=== PATIENT | male | born 1960 | race Caucasian/White ===

== ENCOUNTER → 2016-09-24 | Outpatient (CLI) | payer OTHER ==
[~2016-09-24] VITALS: Ht 162.6 cm; Wt 81.6 kg
[~2016-09-24] MED LIST: ASPIR 8181 MG PO; CARVEDILOL12.5 MG PO; JANUVIA100 MG PO; LEVOTHYROXINE 0.15MG PO; LISINOPRIL20 MG PO; NEXIUM40 MG PO; NOVOLIN N100 UNIT/3 INJECTION
--- NOTE | ~2016-09-24 | CATHLAB ---
[facility] [address] [place] [address] INVASIVE PROCEDURE REPORT Name: REGINA MOYA Room #: REG Mc#: [id number] Admission: 09/24/16 Attend Phys: Gianni Reilly, Discharge: Date of : 64 Date of Service: 09/24/16 1022 Report #: [id number] THIS REPORT FOR: //name// APPROVED REPORT Patient Details Patient Status: Out-Patient Room #: The patient is a 56 year-old male Procedure Narrative The patient was brought electively to the Cardiac Catheterization Laboratory and was prepped and draped in a sterile manner. The Right Groin^ was infiltrated with 1% Lidocaine subcutaneous anesthesia. The right femoral accessed via ultrasound guidance. A PINNACLE 6FR Sheath #[id number] sheath was inserted into the RFA^. Coronary angiography was performed using coronary diagnostic catheters. The right coronary system was accessed and visualized with a JR4 catheter. The left coronary system was accessed and visualized with a JL4 catheter. The left ventricle was accessed and visualized with a PIGTAIL catheter. Left ventricular/Aortic Valve gradient assessed via catheter pullback. Left ventriculogram was performed in 30 degree projection. Closure device was deployed with a 6 Fr Mynx. The patient tolerated the procedure well and there were no complications associated with the procedure. Intraoperative Conscious Sedation Sedation start time: 8:48 Case end Time: 9:08 Fentanyl 50 mcg Versed 2 mg Fluoro Time: 1.30 minutes Dose: DAP 4203.83 cGycm2 Contrast Type and Amount: Omnipaque 125 ml Hemodynamics The aortic pressure is 133/63 mmHg with a mean of 100 mmHg. The left ventricular pressure is 133/20 mmHg with a mean of mmHg. The left ventricular end diastolic pressure is 15 mmHg. There was no gradient across the aortic valve upon pullback. Conclusion VENTRICULOGRAPHY: Ventriculography demonstrated normal global and regional left ventricular systolic function. Ejection fraction 65%. Miitral regurgitation was absent. [facility] [address] [address] INVASIVE PROCEDURE REPORT Name: REGINA MOYA ANTONETTE Room #: REG [facility]#: [id number] Admission: 09/24/16 Attend Phys: Gianni Reilly, Discharge: Date of : 64 Date of Service: 09/24/16 1022 Report #: [id number] SELECTIVE CORONARY ANGIOGRAPHY: 1. Left Main: The left main was angiographically normal. 2. Left anterior descending: Exhibited a severe ostial stenosis of 90% (intrastent stenosis). The first diagonal branch was diffusely diseased with an ostial 80% stenosis 3. Circumflex: The circumflex was comprised of 2 marginal branches. The first marginal branch exhibited an 85% stenosis in its distal third 4. Right coronary artery: The right coronary was anatomically dominant and previously stented in its midportion. There was a long, variable 75-85% intrastent stenosis Recommendations Aggressive Medical Therapy CABG <ELECTRONICALLY SIGNED> By: Gianni Reilly MD, [facility] 09/24/16 1022 1022 1022 Gianni Reilly MD, [facility] /INF
--- NOTE | ~2016-09-24 | EKG ---
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
[2016-09-24 07:12] VITALS: BP 139/76
[2016-09-24 08:06] LABS: HEMATOCRIT 43.5 % (42.0-52.0); HEMOGLOBIN 14.6 gm/dL (14.0-18.0); MCHC 33.7 g/dL (28.0-37.0); MCV 83.2 fL (80.0-100.0); RBC 5.23 mil/uL (4.50-6.00); RDW 13.6 % (10.5-14.5); WBC 14.6 thou/uL (4.0-11.0)
[2016-09-24 08:15] LABS: CALCIUM 9.4 mg/dL (8.5-10.1); POTASSIUM 4.3 mmol/L (3.5-5.1)
== END | disposition home or self-care (01) ==
LOC: CATH 06:32
PROVIDERS: Internal Medicine
DX: I25.10 Atherosclerotic heart disease of native coronary artery without angina pectoris (principal); E78.00 Pure hypercholesterolemia, unspecified; I10 Essential (primary) hypertension; Z95.1 Presence of aortocoronary bypass graft; Z90.49 Acquired absence of other specified parts of digestive tract; K21.9 Gastro-esophageal reflux disease without esophagitis; I21.3 ST elevation (STEMI) myocardial infarction of unspecified site; G47.30 Sleep apnea, unspecified; Z98.890 Other specified postprocedural states

== ENCOUNTER 2016-10-07 06:00 | Inpatient (IN) | payer OTHER ==
[2016-10-01 10:11] LABS: URINE BILIRUBIN NEGATIVE (Negative); URINE BLOOD NEGATIVE (Negative); URINE COLOR YELLOW; URINE GLUCOSE-RANDOM* 3+ (Negative); URINE KETONES NEGATIVE (Negative); URINE LEUKOCYTES-REFLEX NEGATIVE (Negative); URINE PROTEIN (DIPSTICK) NEGATIVE (Negative); URINE SPECIFIC GRAVITY 1.015 (1.003-1.035); URINE UROBILINOGEN 0.2 E.U./dl (0.2-1.0)
[2016-10-01 10:27] LABS: APTT 27.1 Seconds (24.5-32.8)
[~2016-10-07] VITALS: Ht 165.1 cm; Wt 85.3 kg
--- NOTE | ~2016-10-07 | EKG ---
[address] [place] 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 : 1960 Requested By: Saige Lua Order Number: [id number] MD: Gianni Reilly Measurements Intervals Gray Rate: 88 P: 54 WA: 162 QRS: -28 QRSD: 94 T: 44 QT: 359 QTc: 435 Interpretive Statements Sinus rhythm Borderline left axis deviation Minimal diffuse ST elevation, consider pericarditis Compared to ECG 09/24/2016 07:52:09 Nonspecific change in the ST and T-wave segments Electronically Signed On 10-10-2016 13:07:51 CDT by Gianni Reilly [email or web address] <ELECTRONICALLY SIGNED> By: Gianni Reilly MD, [facility] 10/10/16 1307 0733 Gianni Reilly MD, [facility] /EPI
[~2016-10-07 06:00] MED LIST changes: +IMDUR 60 MG TAB60 M1 PO; +INVOKANA300 MG PO; +LEVEMIR SUBQ; +NOVOLOG100 UNIT/1 SUBQ; +PRALUENT P75 MG/1 ML SQ; +REPATHA SU140 MG/1 M SQ
[2016-10-07 08:35] VITALS: BP 135/82
[2016-10-07 14:02] LABS: POC BE 0 mmol/L (-2.0 to +3.0); POC CA IONIZED > 8.9 mg/dL (4.5-5.3); POC FiO2 100 %; POC GLUCOSE 154 mg/dL (70-99); POC HCO3 26.2 mmol/L (22.0-26.0); POC HEMOGLOBIN 9.2 g/dL (14.0-18.0); POC POTASSIUM 4.3 mmol/L (3.5-5.1); POC SODIUM 140 mmol/L (136-145); POC pCO2 53.2 mmHg (35.0-45.0)
[2016-10-07 14:02] LABS: POC BE -2 mmol/L (-2.0 to +3.0); POC CA IONIZED 5.1 mg/dL (4.5-5.3); POC FiO2 100 %; POC GLUCOSE 178 mg/dL (70-99); POC HCO3 23.9 mmol/L (22.0-26.0); POC HEMOGLOBIN 12.9 g/dL (14.0-18.0); POC POTASSIUM 4.6 mmol/L (3.5-5.1); POC SODIUM 139 mmol/L (136-145); POC pCO2 42.3 mmHg (35.0-45.0)
[2016-10-07 14:02] LABS: POC BE -2 mmol/L (-2.0 to +3.0); POC CA IONIZED 8.1 mg/dL (4.5-5.3); POC FiO2 100 %; POC GLUCOSE 152 mg/dL (70-99); POC HCO3 23.8 mmol/L (22.0-26.0); POC HEMOGLOBIN 9.2 g/dL (14.0-18.0); POC POTASSIUM 3.8 mmol/L (3.5-5.1); POC SODIUM 141 mmol/L (136-145); POC pCO2 43.2 mmHg (35.0-45.0)
[2016-10-07 14:02] LABS: POC BE -12 mmol/L (-2.0 to +3.0); POC CA IONIZED 1.5 mg/dL (4.5-5.3); POC FiO2 100 %; POC GLUCOSE 89 mg/dL (70-99); POC HCO3 13.8 mmol/L (22.0-26.0); POC HEMOGLOBIN 6.1 g/dL (14.0-18.0); POC POTASSIUM < 2.5 mmol/L (3.5-5.1); POC SODIUM 160 mmol/L (136-145); POC pCO2 24.5 mmHg (35.0-45.0); POC pH 7.361 (7.360-7.450)
[2016-10-07 14:02] LABS: POC BE -3 mmol/L (-2.0 to +3.0); POC CA IONIZED 4.9 mg/dL (4.5-5.3); POC FiO2 100 %; POC GLUCOSE 187 mg/dL (70-99); POC HCO3 23.3 mmol/L (22.0-26.0); POC HEMOGLOBIN 12.9 g/dL (14.0-18.0); POC POTASSIUM 4.4 mmol/L (3.5-5.1); POC SODIUM 140 mmol/L (136-145); POC pCO2 43.5 mmHg (35.0-45.0); POC pH 7.337 (7.360-7.450)
[2016-10-07 14:02] LABS: POC BE -3 mmol/L (-2.0 to +3.0); POC CA IONIZED 7.3 mg/dL (4.5-5.3); POC FiO2 100 %; POC GLUCOSE 121 mg/dL (70-99); POC HCO3 22.5 mmol/L (22.0-26.0); POC HEMOGLOBIN 11.2 g/dL (14.0-18.0); POC POTASSIUM 3.6 mmol/L (3.5-5.1); POC SODIUM 143 mmol/L (136-145); POC pCO2 42.3 mmHg (35.0-45.0); POC pH 7.334 (7.360-7.450)
[2016-10-07 14:02] LABS: POC BE -1 mmol/L (-2.0 to +3.0); POC CA IONIZED 4.3 mg/dL (4.5-5.3); POC FiO2 100 %; POC GLUCOSE 167 mg/dL (70-99); POC HCO3 24.8 mmol/L (22.0-26.0); POC HEMOGLOBIN 10.2 g/dL (14.0-18.0); POC POTASSIUM 4.3 mmol/L (3.5-5.1); POC SODIUM 140 mmol/L (136-145); POC pCO2 48.5 mmHg (35.0-45.0); POC pH 7.317 (7.360-7.450)
[2016-10-07 14:02] LABS: POC BE 0 mmol/L (-2.0 to +3.0); POC CA IONIZED 4.7 mg/dL (4.5-5.3); POC FiO2 100 %; POC GLUCOSE 155 mg/dL (70-99); POC HCO3 26.6 mmol/L (22.0-26.0); POC HEMOGLOBIN 10.5 g/dL (14.0-18.0); POC POTASSIUM 4.6 mmol/L (3.5-5.1); POC SODIUM 143 mmol/L (136-145); POC pH 7.285 (7.360-7.450)
[2016-10-07 14:02] LABS: POC BE -4 mmol/L (-2.0 to +3.0); POC CA IONIZED 4.5 mg/dL (4.5-5.3); POC FiO2 100 %; POC GLUCOSE 164 mg/dL (70-99); POC HCO3 22.6 mmol/L (22.0-26.0); POC HEMOGLOBIN 10.5 g/dL (14.0-18.0); POC POTASSIUM 4.3 mmol/L (3.5-5.1); POC SODIUM 140 mmol/L (136-145); POC pCO2 46.7 mmHg (35.0-45.0); POC pH 7.293 (7.360-7.450)
[2016-10-07 14:26] VITALS: BP 120/82
[2016-10-07 14:38] LABS: ABG SAMPLE TYPE ARTERIAL; BE(vivo) -6.5 mmol/L (-2 to +3); HCO3 19.7 mmol/L (22.0-26.0); O2(CT) 18.1 mL/dL (15.0-23.0); O2Hb 97.4 % (92.0-98.0); PCO2 41.8 mmHg (35.0-45.0); PO2 153.5 mmHg (80.0-100.0); sO2 98.8 % (92.0-98.0)
[2016-10-07 14:39] LABS: STICK SITE LINE; TIDAL VOLUME 600 ml; pH 7.291 (7.360-7.450)
[2016-10-07 15:13] LABS: HEMATOCRIT 37.4 % (42.0-52.0); HEMOGLOBIN 12.5 gm/dL (14.0-18.0); MCH 28.3 pg (26.0-34.0); MCHC 33.5 g/dL (28.0-37.0); MCV 84.6 fL (80.0-100.0); RBC 4.42 mil/uL (4.50-6.00); RDW 13.6 % (10.5-14.5); WBC 23.4 thou/uL (4.0-11.0)
[2016-10-07 15:23] LABS: CREATININE 0.9 mg/dL (0.7-1.3); MAGNESIUM 2.5 mg/dL (1.8-2.4); POTASSIUM 4.3 mmol/L (3.5-5.1)
[2016-10-07 15:33] LABS: ABG SAMPLE TYPE ARTERIAL; BE(vivo) -4.3 mmol/L (-2 to +3); LACTATE 1.58 mmol/L (0.5-2.0); O2(CT) 17.6 mL/dL (15.0-23.0); O2Hb 94.6 % (92.0-98.0); PCO2 39.3 mmHg (35.0-45.0); PO2 87.2 mmHg (80.0-100.0); pH 7.345 (7.360-7.450); sO2 96.2 % (92.0-98.0); tCO2 22.2 mmol/L (24.0-30.0)
[2016-10-07 15:35] LABS: STICK SITE LINE; TIDAL VOLUME 600 ml
[2016-10-07 15:54] LABS: APTT 24.1 Seconds (24.5-32.8); INR 1.1; PROTIME 11.3 Seconds (9.3-11.4)
[2016-10-07 16:59] LABS: ABG SAMPLE TYPE ARTERIAL; HCO3 19.1 mmol/L (22.0-26.0); LACTATE 1.88 mmol/L (0.5-2.0); O2(CT) 17.8 mL/dL (15.0-23.0); PCO2 36.4 mmHg (35.0-45.0); pH 7.338 (7.360-7.450); sO2 95.9 % (92.0-98.0); tCO2 20.2 mmol/L (24.0-30.0)
[2016-10-07 17:00] LABS: STICK SITE LINE; TIDAL VOLUME 600 ml
[2016-10-07 18:22] LABS: ABG SAMPLE TYPE ARTERIAL; BE(vivo) -2.5 mmol/L (-2 to +3); HCO3 22.4 mmol/L (22.0-26.0); LACTATE 1.95 mmol/L (0.5-2.0); O2(CT) 17.7 mL/dL (15.0-23.0); PO2 87.7 mmHg (80.0-100.0); STICK SITE LINE; TIDAL VOLUME 600 ml; pH 7.377 (7.360-7.450); sO2 96.5 % (92.0-98.0); tCO2 23.6 mmol/L (24.0-30.0)
[2016-10-07 18:43] LABS: HEMATOCRIT 38.2 % (42.0-52.0); HEMOGLOBIN 12.8 gm/dL (14.0-18.0); MCHC 33.5 g/dL (28.0-37.0); MCV 83.4 fL (80.0-100.0); RBC 4.58 mil/uL (4.50-6.00); RDW 13.6 % (10.5-14.5); WBC 22.2 thou/uL (4.0-11.0)
[2016-10-07 18:51] LABS: CALCIUM 10.2 mg/dL (8.5-10.1); CREATININE 0.9 mg/dL (0.7-1.3); POTASSIUM 4.3 mmol/L (3.5-5.1)
[2016-10-07 20:11] LABS: ABG SAMPLE TYPE ARTERIAL; BE(vivo) -1.9 mmol/L (-2 to +3); HCO3 22.6 mmol/L (22.0-26.0); LACTATE 1.75 mmol/L (0.5-2.0); O2Hb 92.3 % (92.0-98.0); PCO2 37.8 mmHg (35.0-45.0); PO2 69.7 mmHg (80.0-100.0); STICK SITE LINE; pH 7.394 (7.360-7.450); tCO2 23.7 mmol/L (24.0-30.0)
[2016-10-07 20:12] LABS: ABG COMMENT CPAP X 20MINUTES; Pressure Support 8 cm H20
[2016-10-07 20:56] LABS: ABG COMMENT 30MIN POST EXTUB.; ABG SAMPLE TYPE ARTERIAL; BE(vivo) -1.5 mmol/L (-2 to +3); Face Shield 60 %; HCO3 23.2 mmol/L (22.0-26.0); LACTATE 1.69 mmol/L (0.5-2.0); O2(CT) 17.1 mL/dL (15.0-23.0); PCO2 39.2 mmHg (35.0-45.0); PO2 76.6 mmHg (80.0-100.0); STICK SITE LINE; sO2 95.3 % (92.0-98.0); tCO2 24.4 mmol/L (24.0-30.0)
[2016-10-08] VITALS (14 sets, daily range): BP systolic 88–131; BP diastolic 58–88
[2016-10-08 03:11] LABS: HEMATOCRIT 36.9 % (42.0-52.0); HEMOGLOBIN 12.3 gm/dL (14.0-18.0); MCH 27.8 pg (26.0-34.0); MCHC 33.3 g/dL (28.0-37.0); MCV 83.5 fL (80.0-100.0); RBC 4.42 mil/uL (4.50-6.00); RDW 14.1 % (10.5-14.5); WBC 16.5 thou/uL (4.0-11.0)
[2016-10-08 03:28] LABS: CALCIUM 8.8 mg/dL (8.5-10.1); CREATININE 0.6 mg/dL (0.7-1.3); MAGNESIUM 1.8 mg/dL (1.8-2.4); POTASSIUM 4.3 mmol/L (3.5-5.1)
[2016-10-09] VITALS (16 sets, daily range): BP systolic 79–122; BP diastolic 44–71
[2016-10-09 04:58] LABS: HEMATOCRIT 32.5 % (42.0-52.0); HEMOGLOBIN 10.8 gm/dL (14.0-18.0); MCH 28.3 pg (26.0-34.0); MCHC 33.2 g/dL (28.0-37.0); MCV 85.5 fL (80.0-100.0); RBC 3.81 mil/uL (4.50-6.00); WBC 13.3 thou/uL (4.0-11.0)
[2016-10-09 05:17] LABS: CALCIUM 8.4 mg/dL (8.5-10.1); CREATININE 1.2 mg/dL (0.7-1.3); POTASSIUM 4.3 mmol/L (3.5-5.1)
[2016-10-10 03:36] VITALS: BP 115/76
[2016-10-10 03:50] LABS: CALCIUM 8.6 mg/dL (8.5-10.1); CREATININE 0.9 mg/dL (0.7-1.3); POTASSIUM 3.9 mmol/L (3.5-5.1)
[2016-10-10 03:58] LABS: HEMATOCRIT 32.8 % (42.0-52.0); HEMOGLOBIN 10.9 gm/dL (14.0-18.0); MCH 28.2 pg (26.0-34.0); MCHC 33.2 g/dL (28.0-37.0); RBC 3.86 mil/uL (4.50-6.00); RDW 13.8 % (10.5-14.5)
[2016-10-10 07:14] VITALS: BP 135/80
[2016-10-10 11:37] VITALS: BP 104/63
[2016-10-10 16:02] VITALS: BP 104/61
[2016-10-10 19:18] VITALS: BP 104/63
[2016-10-11 03:20] VITALS: BP 126/73
[2016-10-11 07:38] VITALS: BP 126/75
[2016-10-11] MEDS ORDERED: BENAZEPRIL HCL10 MG PO (07:47)
[2016-10-11] MEDS ORDERED: PLAVIX 75 MG TA75 M1 PO (08:29)
[2016-10-11 10:24] VITALS: BP 126/75
[2016-10-11 12:12] VITALS: BP 126/75
== END 2016-10-11 12:30 | disposition home or self-care (01) | DRG 236 ==
LOC: TBA 06:00 → ICU 06:00 → PRE 08:57 → ICU 14:58 → 2N 10-09 17:04
PROVIDERS: Nurse Practitioner; Thoracic Surgery (Cardiothoracic Vascular Surgery)
PROC: 02100Z9 Bypass Coronary Artery, One Artery from Left Internal Mammary, Open Approach (ICD-10-PCS; principal; 2016-10-07)
PROC: 02100AW Bypass Coronary Artery, One Artery from Aorta with Autologous Arterial Tissue, Open Approach (ICD-10-PCS; principal; 2016-10-07)
PROC: 03BC4ZZ Excision of Left Radial Artery, Percutaneous Endoscopic Approach (ICD-10-PCS; principal; 2016-10-07)
PROC: 02HV33Z Insertion of Infusion Device into Superior Vena Cava, Percutaneous Approach (ICD-10-PCS; 2016-10-07)
PROC: 5A1935Z Respiratory Ventilation, Less than 24 Consecutive Hours (ICD-10-PCS; 2016-10-07)
PROC: 0BH17EZ Insertion of Endotracheal Airway into Trachea, Via Natural or Artificial Opening (ICD-10-PCS; 2016-10-07)
PROC: 4A1 Measurement and Monitoring, Physiological Systems, Monitoring (ICD-10-PCS; 2016-10-07)
PROC: 03HY32Z Insertion of Monitoring Device into Upper Artery, Percutaneous Approach (ICD-10-PCS; 2016-10-07)
PROC: 4A133B1 Monitoring of Arterial Pressure, Peripheral, Percutaneous Approach (ICD-10-PCS; 2016-10-07)
DX: I25.110 Atherosclerotic heart disease of native coronary artery with unstable angina pectoris (principal); E11.9 Type 2 diabetes mellitus without complications; I10 Essential (primary) hypertension; E78.5 Hyperlipidemia, unspecified; G40.909 Epilepsy, unspecified, not intractable, without status epilepticus; K21.9 Gastro-esophageal reflux disease without esophagitis; G47.33 Obstructive sleep apnea (adult) (pediatric); E03.9 Hypothyroidism, unspecified; Z96.649 Presence of unspecified artificial hip joint; Z88.6 Allergy status to analgesic agent; Z88.8 Allergy status to other drugs, medicaments and biological substances; Z91.041 Radiographic dye allergy status; Z79.82 Long term (current) use of aspirin; Z90.49 Acquired absence of other specified parts of digestive tract; Z79.899 Other long term (current) drug therapy; Z98.62 Peripheral vascular angioplasty status; Z83.6 Family history of other diseases of the respiratory system; Z83.3 Family history of diabetes mellitus; Z82.49 Family history of ischemic heart disease and other diseases of the circulatory system
CPT/HCPCS: 10078; 10081; 47000; 47001; 47002; 47297; 48888; 50010; 50249; 50409; 50456; 50497; 50662; 50668; 51301; 52131; 53327; 53358; 54118; 56524; 56525; 56526; 56527; 56528; 56531; 56533; 56534; 56639; 56660; 57093; 62110; 62950; 64029; 65002; 65003; 65020; 65090; 65120

== ENCOUNTER → 2019-05-23 | Outpatient (CLI) | payer OTHER ==
[~2019-05-23] MED LIST changes: +BENAZEPRIL HCL10 MG PO; +PLAVIX 75 MG TA75 M1 PO
== END ==
LOC: SJCVC 14:57
DX: I44.5 Left posterior fascicular block (principal); I25.10 Atherosclerotic heart disease of native coronary artery without angina pectoris; I10 Essential (primary) hypertension; E11.9 Type 2 diabetes mellitus without complications; G47.33 Obstructive sleep apnea (adult) (pediatric); Z95.1 Presence of aortocoronary bypass graft; E78.00 Pure hypercholesterolemia, unspecified; Z90.49 Acquired absence of other specified parts of digestive tract; Z96.649 Presence of unspecified artificial hip joint; Z79.899 Other long term (current) drug therapy

== ENCOUNTER → 2019-11-22 | Outpatient (CLI) | payer OTHER | LOC: SJCVCIMAG 07:54 | PROVIDERS: ATTEND Internal Medicine | DX: I25.10 Atherosclerotic heart disease of native coronary artery without angina pectoris (principal); I49.3 Ventricular premature depolarization; R00.0 Tachycardia, unspecified; I10 Essential (primary) hypertension; E78.5 Hyperlipidemia, unspecified; E11.9 Type 2 diabetes mellitus without complications; Z95.1 Presence of aortocoronary bypass graft; Z79.899 Other long term (current) drug therapy ==

== ENCOUNTER → 2021-01-02 | Outpatient (CLI) | payer OTHER | LOC: SJCVC 10:01 | PROVIDERS: ATTEND Internal Medicine | DX: R94.31 Abnormal electrocardiogram [ECG] [EKG] (principal); I25.10 Atherosclerotic heart disease of native coronary artery without angina pectoris; R07.89 Other chest pain; I10 Essential (primary) hypertension; E78.5 Hyperlipidemia, unspecified; E11.9 Type 2 diabetes mellitus without complications; G47.33 Obstructive sleep apnea (adult) (pediatric); Z95.1 Presence of aortocoronary bypass graft; Z79.82 Long term (current) use of aspirin; Z79.899 Other long term (current) drug therapy; Z88.5 Allergy status to narcotic agent ==